=== PATIENT | female | born 1995 | race Caucasian/White ===

== ENCOUNTER 2021-03-11 01:47 | Day surgery (SDC) | payer OTHER, SELFPAY ==
[2021-02-25 14:45] VITALS: BMI 24.5
--- NOTE | 2021-03-11 08:25 | WPDANESEPPF ---
Anes - Initial Pre Proc Eval Procedure: Operation Date: 03/11/21 09:45 Proposed Procedures p Esophagogastroduodenoscopy & Colonoscopy - Jeffy Bhandari MD Date/Time: 03/11/21 08:25 Surgeon: Jeffy Bhandari MD Pre Op Diagnosis: blood in stool, nausea and vomiting Patient Data Age: 25 Gender: F Height: 1.6 m Weight: 63 kg Allergies Allergy/AdvReac Type Severity Reaction Status Date / Time pecan nut Allergy Severe Swelling Verified 03/11/21 09:26 of Lip/Tongue/Throat walnut Allergy Severe Swelling Verified 03/11/21 09:26 of Lip/Tongue/Throat montelukast Allergy Intermediate Rash Verified 03/11/21 09:26 Home Medications Medication Instructions Recorded Confirmed Type albuterol sulfate 90 mcg/actuation 1 puff INHALATION Q4H PRN 02/09/20 03/11/21 History aerosol inhaler cetirizine 10 mg tablet 10 mg PO DAILY 02/09/20 03/11/21 History diphenhydramine HCl 25 mg capsule 25 mg PO TID PRN 02/09/20 03/11/21 History efinaconazole 10 % topical 1 applic TOPICAL DAILY 02/09/20 03/11/21 History solution with applicator epinephrine 0.3 mg/0.3 mL 0.3 mg IM ONCE #2 each 02/09/20 03/11/21 Rx injection, auto-injector fluticasone propionate 50 1 spray NASAL DAILY 02/09/20 03/11/21 History mcg/actuation nasal spray,suspension Advanced Multi EA 1 tab-cap PO DAILY 02/25/21 03/11/21 History Daily Probiotic 1 tab-cap PO DAILY 02/25/21 03/11/21 History guar gum [Benefiber (guar gum)] 1 packet PO BID 02/25/21 03/11/21 History norgestimate-ethinyl estradiol 1 tablet PO DAILY 02/25/21 03/11/21 History [Tri-Sprintec (28)] Patient hx anesthesia problems: none Family hx anesthesia problems: none PMFSH Past Medical History Medical History (Updated 03/11/21 @ 08:25 by Elvis Humphrey MD) Asthma Asthma Blood in stool Chronic GERD Eczema Nausea and vomiting in adult Surgical History Surgical History [place] teeth extracted Family History Family History Father Hypertension Diabetes mellitus High cholesterol Grandparent Hypertension Diabetes mellitus Pancreatic cancer Cerebrovascular accident Glaucoma Social History Social History Smoking status: Never smoker Alcohol intake: current Alcohol use details: social Substance use: never Substance use type: does not use Living arrangements: with family Spiritual care concerns: No Anes - Eval Final PreProcedure Day of Procedure 03/11/21 08:25 Patient weight: normal Heart: regular rate and rhythm Lungs: clear to auscultation and normal air movement Airway: Mallampati scale class II Neurological: alert and oriented Last oral intake: >/= 8 hours ASA classification: II Emergent: no Anesthetic plan: proceed Anesthesia type and monitoring: general GIVS Informed Consent: The patient's anesthetic plan and its attendant risks and benefits were discussed with the patient/family/POA. Questions were solicited and answers provided to the satisfaction of the patient/family/POA.
[2021-03-11 09:28] VITALS: BP 138/76; PULSE 98; RESP 16; TEMP 36.4; O2SAT 100; BMI 24.9
[2021-03-11] MEDS: LACTATED RINGERS 1,000 ML 150 ML IV CONT (09:32)
--- NOTE | 2021-03-11 09:54 | PM.HPGS ---
History of Present Illness History of Present Illness Consent: Risks, benefits, and alternatives have been discussed and questions answered. Patient agrees to proceed with procedure. Chief complaint: blood in stool, nausea and vomiting Narrative: Nikki Hearn is a 25 year old female here for egd and colonoscopy, had intermittent moderate upper abdominal pain at least once a month associated most of times with nausea but improved since last office visit. Also noted blood in stools. Never had scopes. Review of Systems Constitutional: Constitutional: Denies headache(s) and Denies weakness Eyes: Eyes: Denies blurry vision ENT: Reports Normal hearing present, Denies headache(s) and Denies neck pain Cardiovascular: Cardiovascular: Denies chest pain and Denies dyspnea Respiratory: Respiratory: Denies dyspnea Gastrointestinal: Gastrointestinal: Reports no additional gastrointestinal complaints Genitourinary: Genitourinary: Denies dysuria Musculoskeletal: Musculoskeletal: Denies neck pain Integumentary/Breasts: Skin/Breast: Denies dry skin Neurologic: Reports Normal hearing present, Denies headache(s) and Denies weakness Psychiatric: Psychiatric: Denies anxiety Endocrine: Endocrine: Denies change in body appearance Hematologic/Lymphatic: Hematologic/Lymphatic: Denies easy bleeding Allergic/Immunologic: Allergic/Immunologic: Denies urticaria PMFSH Past Medical History Medical History (Updated 03/11/21 @ 09:55 by Jeffy Bhandari MD) Asthma Asthma Blood in stool Chronic GERD Eczema Nausea and vomiting in adult Upper abdominal pain Surgical History Surgical History [place] teeth extracted Family History Family History Father Hypertension Diabetes mellitus High cholesterol Grandparent Hypertension Diabetes mellitus Pancreatic cancer Cerebrovascular accident Glaucoma Social History Social History Smoking status: Never smoker Alcohol intake: current Alcohol use details: social Substance use: never Substance use type: does not use Living arrangements: with family Spiritual care concerns: No Meds Home Medications and Allergies Home Medications Medication Instructions Recorded Confirmed Type albuterol sulfate 90 mcg/actuation 1 puff INHALATION Q4H PRN 02/09/20 03/11/21 History aerosol inhaler cetirizine 10 mg tablet 10 mg PO DAILY 02/09/20 03/11/21 History diphenhydramine HCl 25 mg capsule 25 mg PO TID PRN 02/09/20 03/11/21 History efinaconazole 10 % topical 1 applic TOPICAL DAILY 02/09/20 03/11/21 History solution with applicator epinephrine 0.3 mg/0.3 mL 0.3 mg IM ONCE #2 each 02/09/20 03/11/21 Rx injection, auto-injector fluticasone propionate 50 1 spray NASAL DAILY 02/09/20 03/11/21 History mcg/actuation nasal spray,suspension Advanced Multi EA 1 tab-cap PO DAILY 02/25/21 03/11/21 History Daily Probiotic 1 tab-cap PO DAILY 02/25/21 03/11/21 History guar gum [Benefiber (guar gum)] 1 packet PO BID 02/25/21 03/11/21 History norgestimate-ethinyl estradiol 1 tablet PO DAILY 02/25/21 03/11/21 History [Tri-Sprintec (28)] Allergies Allergy/AdvReac Type Severity Reaction Status Date / Time pecan nut Allergy Severe Swelling Verified 03/11/21 09:26 of Lip/Tongue/Throat walnut Allergy Severe Swelling Verified 03/11/21 09:26 of Lip/Tongue/Throat montelukast Allergy Intermediate Rash Verified 03/11/21 09:26 Vital Signs Vital Signs - 24 hr 03/11/21 09:28 Temperature 97.6 F Pulse Rate 98 Respiratory Rate 16 Blood Pressure 138/76 Pulse Oximetry 100 Exam Const: General: comfortable and no acute distress HENMT: General nose exam: Normal nares present Eyes: General: appearance normal, both eyes and all related structures N
[2021-03-11] MEDS: BENZOCAINE (*SP) 60 ML SPRAY CAN (HURRICAINE) 1 SPRAY MUCOUS MEM (10:00)
[2021-03-11 10:25] VITALS: BP 88/47; PULSE 66; RESP 20; O2SAT 99
[2021-03-11 10:35] VITALS: BP 100/63; PULSE 69; RESP 17; O2SAT 100
[2021-03-11 10:45] VITALS: BP 108/72; PULSE 63; RESP 16; O2SAT 100
== END 2021-03-11 10:54 | disposition home or self-care (01) ==
PROVIDERS: PCP Family Medicine; Visit Provider Internal Medicine Gastroenterology
PROC: 0DJ08ZZ Inspection of Upper Intestinal Tract, Via Natural or Artificial Opening Endoscopic (ICD-10-PCS; CPT 43235; principal; 2021-03-11 09:45)
DX: R10.13 Epigastric pain (principal); R11.0 Nausea; R10.10 Upper abdominal pain, unspecified; K92.1 Melena; K64.8 Other hemorrhoids; K29.50 Unspecified chronic gastritis without bleeding; J45.909 Unspecified asthma, uncomplicated; L30.9 Dermatitis, unspecified; Z79.84 Long term (current) use of oral hypoglycemic drugs
CPT/HCPCS: 43239; 45378; 88305; J2704; J7120

== ENCOUNTER 2021-05-19 08:53 | Outpatient (CLI) | payer OTHER, SELFPAY ==
--- NOTE | ~2021-05-19 | US_ITS ---
EXAMINATION: US abdomen complete EXAM DATE: 05/19/2021 09:26 INDICATION: R10.10 - Upper abdominal pain, unspecified. TECHNIQUE: Multiple grayscale and Doppler images of the complete abdomen were obtained (by a technolo gist who performed the scan) and subsequently reviewed. There is no prior study for comparison. FINDINGS: The abdominal aorta is normal in caliber. Visualized portion IVC is patent. The pancreatic head a nd body are normal in appearance. The pancreatic tail is not visualized. The liver has normal echogenicity and contour. There are no focal liver lesions identified. There is no evidence of intrahepatic biliary duct dilation. Portal venous flow was seen in the hepatopedal , normal direction and has normal Doppler waveform. Common bile duct measures 2.5 mm, which is normal. The gallbladder wall is normal in thickness, with expected amount of distention. No sonographic evidence of pericholecystic fluid. There is no cholel ithiases. Technologist performing exam reports patient did not demonstrate sonographic Givens's sign. Please note that this sign is less reliable in patients who have received pain medication. Right kidney: There is normal contour and echogenicity. It measures 9.0 x 3.7 x 4.9 centimeters. T here are no focal renal lesions identified. There is no hydronephrosis. Left kidney: There is normal contour and echogenicity. It measures 8.8 x 4.4 x 4.6 centimeters. Th ere are no focal renal lesions identified. There is no hydronephrosis. The spleen measures 9.1 centimeters and is morphologically normal. IMPRESSION: 1. Unremarkable complete abdominal ultrasound exam. Reviewed, dictated and finalized at location A.
== END 2021-05-19 08:54 | disposition home or self-care (01) ==
LOC: ANHIMG 08:57
PROVIDERS: PCP Family Medicine; Visit Provider Internal Medicine Gastroenterology
DX: R10.10 Upper abdominal pain, unspecified (principal)
CPT/HCPCS: 76700

== ENCOUNTER → 2022-09-07 14:45 | Outpatient (CLI) | payer OTHER, SELFPAY ==
--- NOTE | ~2022-09-07 | US_ITS ---
EXAMINATION: US OB <= 14 weeks fetus DATE: 09/07/2022 15:06 INDICATION: History of spontaneous . TECHNIQUE: Real-time transabdominal pelvic ultrasound was performed. COMPARISON: None. FINDINGS: The uterus measures 9.7 x 5.0 x 7.5 cm. There is an intrauterine gestational sac. A yolk sac is ident ified. The crown rump length measures 2.0 cm, which correlates with an estimated gestational a ge of 8 weeks and 4 day(s) (+/-) 5 day(s). heart motion is identified measuring 181 beats per m inute (bpm) by M-mode Doppler. The right ovary measures 2.6 x 1.6 x 2.2 cm. The left ovary measures 3 .5 x 3.3 x 4.5 cm. There is a 3.3 cm cyst in left ovary with internal echoes, likely a hemorrhagic cy st. There is no free fluid in the pelvis. IMPRESSION: 1. Single living intrauterine gestation with estimated date of delivery of 04/15/2023. Reviewed, dictated and finalized at location A. D INSTRUCTOR IMPRESSION: 1. Single living intrauterine gestation with estimated date of delivery of 04/06.
== END ==
PROVIDERS: PCP Obstetrics & Gynecology Gynecology; Visit Provider Obstetrics & Gynecology Gynecology
DX: O09.291 Supervision of pregnancy with other poor reproductive or obstetric history, first trimester (principal)
CPT/HCPCS: 76801

== ENCOUNTER → 2022-11-30 14:35 | Outpatient (CLI) | payer OTHER, SELFPAY ==
--- NOTE | ~2022-11-30 | US_ITS ---
EXAMINATION: US OB /maternal detail DATE: 11/30/2022 15:05 INDICATION: Encounter for screening, unspecified. TECHNIQUE: Real-time ultrasound of the pelvis was performed. COMPARISON: Ultrasound 09/07/2022 FINDINGS: There is a single living fetus in breech presentation. The placenta is posterior, 5.4 cm from the ce rvix. The cervical length is 3.4 cm on transabdominal images, which is normal. heart rate is 15 2 beats per minute (bpm). The amniotic fluid volume is subjectively normal. The following biometric data were obtained: Biparietal diameter (BPD): 5.2 cm; head circumference (HC): 19.3 cm; abdominal circumference (AC): 16 .1 cm; femur length (FL): 3.4 cm. These measurements are concordant. Estimated weight is 399 g +/- 60 g, which correlates with the 74th percentile when 04/15/23 is u sed as estimated date of delivery. As single measurements, these parameters are each equal to the following estimated gestational ages: BPD: 21 weeks 6 days. HC: 21 weeks 4 days. AC: 21 weeks 1 days. FL: 20 weeks 6 days. estimated gestational age based solely on measurements from this exam is 21 weeks 3 days +/- 1 weeks 3 days. The cerebral ventricles, cerebellum, cisterna magna, nuchal fold, lip, and visualized portions of the spine are normal. The heart is normal. The diaphragm, stomach, kidneys, and bladder are normal. Ther e are two umbilical arteries to yield a 3-vessel cord. The cord insertion is normal. IMPRESSION: 1. Single living fetus in breech presentation. 2. Estimated weight is 399 g +/- 60 g, which correlates with the 74th percentile when 04/15/23 is used as estimated date of delivery. This date was set by ultrasound on 09/07/2022. 3. Normal anatomic survey. Reviewed, dictated and finalized at location E. IMPRESSION: 1. Single living fetus in breech presentation. 2. Estimated weight is 399 g +/- 60 g, which correlates with the 74th pe rcentile when 04/15/23 is used as estimated date of delivery. This date was set by ultrasound on 09/07/2022. 3. Normal anatomic survey.
== END ==
PROVIDERS: PCP Obstetrics & Gynecology Gynecology; Visit Provider Obstetrics & Gynecology Gynecology
DX: Z36.9 Encounter for antenatal screening, unspecified (principal)
CPT/HCPCS: 76805

== ENCOUNTER 2023-04-09 16:55 | Inpatient (IN) | payer OTHER, SELFPAY ==
[2023-04-09] VITALS (15 sets, daily range): BP systolic 106–130; BP diastolic 61–83; PULSE 75–87; TEMP 36.6; BMI 32.4
--- NOTE | 2023-04-09 16:55 | LDADM ---
This patient, Nikki Hearn, was admitted to Labor/Delivery/Recovery 108 on 04/09/23 at 16:55. Plans for labor, pain management and were discussed with patient. Patient/family oriented to hospital policies and general routines including ID bracelet, bed and alarms, visiting hours, pain management, procedures, bathroom and other care routines, personal items, smoking policy, room service/diet and guest tray routines, infant security routines, and visiting hours. Patient/Family are encouraged to report perceived risks to care and to ask questions if they do not understand what they are told or what they should do. See OBIX for further documentation.
[2023-04-09 18:00] LABS: Basophils Percent Auto 0.4 % (0.2-1.2); Eosinophils Absolute Auto 0.1 K/mm3 (0-0.3); Eosinophils Percent Auto 1.1 % (0-4.4); Hematocrit 33.1 % (37.0-47.0); Immature Granulocyte Absolute 0.09 K/mm3 (0.00-0.031); Immature Granulocyte Percent A 0.8 % (0-0.5); Lymphocytes Absolute Auto 1.89 K/mm3 (0.9-3.2); Lymphocytes Percent Auto 16.5 % (18.3-44.2); Mean Corpuscular HGB Conc 33.2 g/dl (32-36); Mean Corpuscular Volume 90.2 fl (80-100); Mean Platelet Volume 10.5 fl (7.4-10.4); Monocytes Absolute Auto 1.1 K/mm3 (0.1-0.6); Monocytes Percent Auto 9.5 % (2.6-8.5); Neutrophils Absolute Auto 8.2 K/mm3 (1.3-6.7); Neutrophils Percent Auto 71.7 % (45.5-73.1); Platelet Count Result 227 k/mm3 (150-375); Red Blood Count 3.67 M/mm3 (4.2-5.4); Red Cell Distribution Width 12.6 % (11.5-14.5); White Blood Count 11.4 K/mm3 (4.5-10.0)
[2023-04-09] MEDS: DINOPROSTONE 10 MG VAG INSERT VAGINAL (18:03)
[2023-04-09 18:51] LABS: HIV 1/2 Ab P24 Ag Result Negative (Negative)
[2023-04-10] VITALS (97 sets, daily range): BP systolic 88–141; BP diastolic 43–89; PULSE 64–167; TEMP 36.2–37.2; O2SAT 99–100
[2023-04-10] MEDS: AMPICILLIN 2 GM/NS 100 ML 2 GM/100 ML BAG IVPB (00:25)
[2023-04-10] MEDS: AMPICILLIN 1 GM/NS 50 ML 1 GM/50 ML BAG IVPB ×5 (04:14→22:35)
--- NOTE | 2023-04-10 05:18 | WPDANESEPP ---
Anes - Eval Pre Procedure Procedure: labor epidural Date/Time: 04/10/23 05:18 Surgeon: shasta Preop Diagnosis: pain during labor Pre Op Diagnosis: Induction of Labor Patient Data Age: 27 Gender: F Height: 1.6 m Weight: 83 kg Last Vital Signs Temp 36.9 C 04/10/23 04:15 Pulse 77 04/09/23 21:15 BP 106/61 04/09/23 21:15 O2 Del Method Room Air 04/09/23 17:45 Allergies Allergy/AdvReac Type Severity Reaction Status Date / Time pecan nut Allergy Severe Swelling Verified 03/23/23 14:17 of Lip/Tongue/Throat walnut Allergy Severe Swelling Verified 03/23/23 14:17 of Lip/Tongue/Throat montelukast Allergy Intermediate Rash Verified 03/23/23 14:17 Home Medications Medication Instructions Recorded Confirmed Type albuterol sulfate 90 mcg/actuation 1 puff inhalation Q4H PRN 02/09/20 03/23/23 History aerosol inhaler Shortness Of Breath Or Wheezing cetirizine 10 mg tablet (Zyrtec) 10 mg PO DAILY 02/09/20 04/09/23 History epinephrine 0.3 mg/0.3 mL 0.3 mg (0.3 mL) IM ONCE #2 ea 02/09/20 03/23/23 Rx injection, auto-injector (EpiPen 2-Uriah) Daily Probiotic 1 tab-cap PO DAILY 02/25/21 03/23/23 History guar gum 1 packet PO BID 02/25/21 03/23/23 History cholecalciferol (vitamin D3) 125 5,000 mcg PO DAILY 03/23/23 03/23/23 History mcg (5,000 unit) tablet (Vitamin D3) Laboratory Tests 04/09/23 17:42 WBC 11.4 H K/mm3 (4.5-10.0) RBC 3.67 L M/mm3 (4.2-5.4) Hgb 11.0 L g/dL (12.0-15.0) Hct 33.1 L % (37.0-47.0) MCV 90.2 fl (80-100) MCH 30.0 pg (26-34) MCHC 33.2 g/dl (32-36) RDW 12.6 % (11.5-14.5) Plt Count 227 k/mm3 (150-375) MPV 10.5 H fl (7.4-10.4) Immature Gran % (Auto) 0.8 H % (0-0.5) Neut % (Auto) 71.7 % (45.5-73.1) Lymph % (Auto) 16.5 L % (18.3-44.2) Dane % (Auto) 9.5 H % (2.6-8.5) Eos % (Auto) 1.1 % (0-4.4) Baso % (Auto) 0.4 % (0.2-1.2) Lymph # (Auto) 1.89 K/mm3 (0.9-3.2) Dane # (Auto) 1.1 H K/mm3 (0.1-0.6) Eos # (Auto) 0.1 K/mm3 (0-0.3) Baso # (Auto) 0.0 K/mm3 (0.0-0.1) Abs Immat Gran (auto) 0.09 H K/mm3 (0.00-0.031) Absolute Neuts (auto) 8.2 H K/mm3 (1.3-6.7) Absolute Nucleated RBC 0.0 K/mm3 (0.0-0.012) Nucleated RBC % 0.0 % (0.0-0.2) RPR Pending HIV 1&2 Ab/P24 Ag 4thGn Negative (Negative) Blood Type A Positive Antibody Screen Negative Patient hx anesthesia problems: none Family hx anesthesia problems: none Results Review: All pre-operative results and documents have been reviewed as part of the pre-operative evaluation. [facility] Past Medical History Medical History Asthma Asthma Blood in stool Chronic GERD Eczema Nausea and vomiting in adult Upper abdominal pain Surgical History Surgical History [place] teeth extracted Family History Family History (Updated 03/23/23 @ 14:35 by Tracey Feldman RN) Father Diabetes mellitus High cholesterol Hypertension Grandparent Pancreatic cancer Diabetes mellitus Glaucoma Hypertension Cerebrovascular accident Mother High cholesterol Social History Social History Smoking status: Never smoker Alcohol intake: current Alcohol use details: social Substance use: never Substance use type: does not use Lack of Transportation: No Lack of Food: Never True Current Housing: I Have Housing Concerned About Future Housing: No Difficulty Paying Gas/Electric Bills: No Difficulty Paying for Meds: No Currently Unemployed: No Education: Master's Degree or Higher Difficulty w/ Childcare or Family Care: No Living arrangements: with family Spiritual care concerns: No Exam Day of Procedure 04/10/23 05:18
[2023-04-10] MEDS: OXYTOCIN 30 UNITS/NS 500 ML 30 UNITS/500 ML BAG 6 UNITS IV CONT (07:01)
[2023-04-10] MEDS: ONDANSETRON INJ 4 MG/2 ML VIAL IV PUSH ×2 (07:01→18:51)
--- NOTE | 2023-04-10 07:28 | WPDOBADMIT ---
Obstetrics - Admit Note Admission Note: record reviewed. No pertinent additions to the history and/or any subsequent changes in the physical findings that are not consistent with the expected course of the were found. Additions to the history and/or subsequent changes in the physical findings follow. Here for MIL at 39 wks. Cervix 2-3/70/-2 posterior. AROM with clear fluid. Pitocin per protocol. FHTs cat.I.
[2023-04-10] MEDS: fentaNYL CITRATE INJ (*CRX) 100 MCG/2 ML VIAL 50 MCG IV PUSH (08:09)
[2023-04-10] MEDS: LACTATED RINGERS 1,000 ML 125 ML IV CONT ×2 (09:10→18:37)
[2023-04-10 15:36] LABS: Rapid Plasma Reagin Non-Reactive (NonReactive)
[2023-04-11] VITALS (18 sets, daily range): BP systolic 112–139; BP diastolic 57–104; PULSE 71–103; RESP 16–18; TEMP 36.6–37.4; O2SAT 98–99
--- NOTE | 2023-04-11 02:05 | PM.OBPRVD ---
OB - Delivery Note Procedure Delivery date: 04/11/23 Procedure: Induction method: AROM, Per Pitocin Protocol and Per Cervidil Protocol Delivery monitor: External FHT and External Uterine Route of delivery: Laceration Description: Perineal - 2nd Degree Delivery repair: vicryl (3-0) Specimen: Yes (placenta) Quantitative Blood Loss (ml): 150 Anesthesia type: Epidural Disposition: Floor Baby Date of : 04/11/23 Weeks of gestation at delivery: 39 Infant gender: Male presentation: vertex position: Right Occiput Anterior Placenta delivery description: Spontaneous Cord Vessel Description: 3 Vessels, Nuchal Cord and Delayed Cord Clamping score one minute: 8 score five minutes: 9
--- NOTE | 2023-04-11 02:07 | PM.OBDSVD ---
DS: Admitting Diagnosis Discharge Date 04/13/23 Admitting Diagnosis MIL @ 39 3/7 wks DS: Discharge Diagnosis Discharge Diagnosis (1) (normal spontaneous vaginal delivery): Code(s): O80 - Encounter for full-term uncomplicated delivery Status: Acute OB - DS: Summary OB Procedures : Ultrasound OB Procedures Intrapartum: Spontaneous Vag Delivery OB Procedures: : None Peripartum Data Delivery Method: Natural Vaginal Laceration Description: Perineal - 2nd Degree complications: none Status at Discharge Functional status at discharge: independent ambulation Overall status at discharge: patient is progressing back to baseline Time Spent with Patient Time attestation: Total time spent providing and/or coordinating discharge services: DS: Data Data Completed and Pending Labs on day of discharge: Labs from last 24 hours 04/09/23 17:42 RPR Non-reactive Discharge Plan Discharge Attending physician on discharge: Tamia Gonzalez Consulting providers: Phillip Brennan; Edilma Gonsalez; Gilberto Sandoval; Stella Pritchett Discharging Clinician: Stella Pritchett Anticipated Discharge Date/Time: 04/13/23 02:08 Patient Disposition: Home, Self-Care Activity: may shower and pelvic rest Diet: regular Wound Care Instructions: follow printed instructions Discharge Instructions: Education: Mom and Baby Guide Given to: Mother Follow-Up: Call your delivering provider's office for an appointment to be seen in: 4 Weeks Mom and baby [facility] for the follow-up appointment. Appointment Date/Time: April 14, 2023 at 11:00 am What to expect at your follow-up visit: Blood Pressure Check Call [phone] if you are unable to keep your appointment time. BREAST CARE: * Wear a snug supportive bra. * For engorgement discomfort: Breast Feeding: * Apply warm moist washcloths * Express milk as needed to relieve engorgement * Wear loose clothing Bottle Feeding: * May apply ice packs * For sore nipples: * Identify correct latch-on * Apply warm moist washcloths before and after nursing * Air dry nipples after nursing * May apply Lansinoh cream to nipples PERINEAL CARE: * Until bleeding stops, use your cristaino bottle after urinating * Change your pad frequently throughout the day * You may take sitz baths several times a day (fill your bathtub with warm water and soak for 20 minutes.) Do NOT bathe in the water * No tub baths until seen by your physician - You may shower ACTIVITY: * Rest as much as possible. * Do not exercise or lift anything heavier than your baby (such as laundry or other children.) * Avoid stairs or driving as much as possible. * Do not put anything into the vagina. No douching, tampons, or sexual activity until seen by physician. NOTIFY PHYSICIAN IF YOU HAVE ANY QUESTIONS OR IF ANY OF THE FOLLOWING SYMPTOMS OCCUR: * If your perineum becomes red, swollen, or more painful than what you have experienced in the hospital. * If your vaginal bleeding becomes foul smelling. * If your vaginal bleeding becomes more heavy than a period or if your bleeding changes from pink to bright red. However, you may pass an occasional walnut-sized clot once or twice for the first week . * If you experience a sharp, shooting pain in you calves. * If you discover a hard, reddened area on your breast or if you experience flu-like symptoms. * If you have a fever of 100.4 or greater DIET: * Eat regular, well-balanced meals. * Drink plenty of fluids daily. If , drink to thirst.Continue taking your vitamin and any other supplements as previously directed (Examples: Iron, Vitamin D). You may take Tylenol 1000mg over the counter every 6 hours as needed for pain. Do not exceed 4000mg of Tylenol d
[2023-04-11] MEDS: OXYTOCIN 30 UNITS/NS 500 ML 30 UNITS/500 ML BAG 125 UNITS IV CONT (02:10)
[2023-04-11] MEDS: IBUPROFEN 600 MG TABLET PO ×4 (02:57→16:59)
--- NOTE | 2023-04-11 04:51 | OBPPTRN ---
Patient transferred to post room #281 via w/c. Support person present. Oriented to unit, room, information board, rooming in, admission packet and security measures. Patient verbalizes understanding.
--- NOTE | 2023-04-11 09:04 | PC.NURSE ---
On 04/11/23, the student, Todd Mai, provided care and completed [facility] documentation on this patient. I have reviewed the student's documentation and agree with the findings.
[2023-04-11] MEDS: MULTIVIT/MIN/PREN/FOL AC/IRON TABLET 1 TAB PO (09:48)
[2023-04-11] MEDS: DOCUSATE SODIUM 100 MG CAPSULE PO ×2 (09:48→16:59)
--- NOTE | 2023-04-11 10:42 | PM.OBPNVD ---
OB - PN: Subj Subjective Date/time seen: 04/11/23 0743 Interval history: PPD 0 from . Taking Ibuprofen for vaginal soreness. Has put baby to breast twice. No large clots. Urinated without problems. Patient comments: pain well controlled feeding status: exclusively breast feeding OB - PN: Obj Data Labs 04/09/23 17:42 Labs: Laboratory Results - last 24 hr 04/09/23 17:42 RPR Non-reactive OB - PN A/P Plan day: 0 Plan: routine care Time Spent With Patient Time: Total time spent is greater than 50% in coordination of care (as documented) at patient's floor/unit and/or counseling patient: Review of Systems Review of Systems: All systems reviewed & are unremarkable except as noted in HPI and below Exam Narrative: Alert and oriented. Mood is pleasant and cooperative. Perineum with minimal edema. Fundus firm and below umbilicus. Const: General: cooperative, healthy appearing, no acute distress and alert Orientation/consciousness: patient oriented x3 Limitations: no limitations Resp: Effort & Inspection: normal respiratory effort and able to speak in complete sentences Auscultation: clear to auscultation bilaterally Cardio: Rate: regular rate GI: Inspection: normal to inspection Auscultation: normal bowel sounds : Speculum Exam - Vagina: vaginal bleeding OB/external & speculum: vaginal bleeding Skin: General skin exam: normal color and no rashes or lesions noted Neuro: General: patient oriented x3 and moves all extremities Cognition (Neuro): normal cognition Extrem: General: normal to inspection and no calf tenderness Psych: Appearance: grossly normal Mental Status: mental status grossly normal Affect: normal affect Thought process: Normal thought process present
--- NOTE | 2023-04-11 12:28 | PC.NURSE ---
[phone] Introductions were made, then consulted with patient to assess needs related to . Mother led the conversation with her?plans to feed?her infant and the?experience so far. Resources provided for inpatient services with name written on the white board. Mother voiced understanding of information and will call if there is a request for assistance. [phone] Consulted with patient to assess needs related to . Mother led the conversation with her?plans to feed?her and the?experience so far. Mother works well with her with encouragement and education. Encouraged understanding of the benefits of skin to skin (demonstrating unwrapping infant and placing upright on her chest), stimulating with massage touch, changing positions to encourage wakefulness, how to watch for early feeding cues, responsive feeding, feeding on demand (aiming for 8-12 times in 24 hours, about every 2-3 hours), milk production, building/maintaining a milk supply, duration of feeding, signs of adequate intake/output and how to record on the feeding sheet. Reviewed positioning and ear, shoulder, hip alignment, supporting the breast to facilitate a deep latch, asymmetrical latch (off-center), leading with the chin with a big, open, wide gape and body close to mother. Nipple shield provided prior to introduction to mother due to ineffective by not latching. Reviewed good handwashing, cleaning the nipple shield and application. Discussed with mom the nipple shield precautions, possible complications associated with the risks and benefits. Reviewed practicing with a nipple shield, then without and how to protect the milk supply and production. Mom voiced understanding of the importance of hand expression, nipple stimulation and initiating a pumping schedule if continues to nurse with the shield. Nipple care reviewed with optimal latch and good positioning. Reviewed good handwashing when or touching the breast/nipples to prevent infection. We practiced with and without the nipple shield. Infant attempts with a big, open, wide gape without sucking on the breast. With the nipple shield applied correctly sucked a few times, then stops. is sleepy and reluctant to practice eating at this time. Resources used to facilitate learning were used with the mom and baby guide. Mother voiced understanding of skin to skin, stimulating with massage touch, responsive feedings, hand expressed colostrum, talking to to encourage if it has been 2 -2.5 hours since the start of the last , to call if infant does not latch, or if there is discomfort with . Parents voiced understanding of information, demonstrated learning and will call if there is a request for assistance. Reported to the Primary RN.
--- NOTE | 2023-04-11 15:20 | PC.NURSE ---
1330 - Purposefully rounded to assess needs. Parents state they attempted to breastfeed 10 min on each breast with and without the nipple shield. They are sitting down to eat lunch. Reviewed protecting the milk supply and instructed them to call Primary RN Irene to initiate pumping when they are finished with lunch. Father of baby showed RN a picture of colostrum inside the nipple shield after using the tool. Reported to Primary RN.
--- NOTE | 2023-04-11 16:15 | PC.NURSE ---
1522 - 1645 Consulted with patient to assess needs related to . Reviewed stimulating for wakefulness to breastfeed. Assisted mother with practicing her infant with and without the nipple shield on the right breast using football positioning. After several attempts of practicing the nipple shield walolng the infant was able to latch a suck a few times with good rocking motion. Infant doesn't maintain for long and demonstrates the gagging reflux afterwards. Parents were encouraged to use [id number] and to keep practicing every 2-3 hours. We discussed hand, manual and electric expression to protect her milk supply. Mother opted to use the electric pump at this time. 1655 - 1610 Breast pump provided due to ineffective feeding with a nipple shield. Instructions given on cleaning, care, usage, that there should be no pain, pumping schedule for milk production, collection, and storage of human milk. Parents are encouraged to record pumping schedule on the [feeding sheet/pumping log]. Patient was assessed for correct placement, flange size, to pump for comfort and nipple stretching/stimulation for adequate milk production every 3 hours (8 times in 24 hours) 1-2 times at night. Mother voiced understanding of the education shared along with mom and baby guide for additional resource information. Reported to the primary RN.
[2023-04-12] MEDS: IBUPROFEN 600 MG TABLET PO ×2 (03:38→17:12)
[2023-04-12 04:25] VITALS: BP 130/74; PULSE 90; RESP 18; TEMP 36.7; O2SAT 98
[2023-04-12 05:10] LABS: Hematocrit 26.7 % (37.0-47.0); Hemoglobin 8.7 g/dL (12.0-15.0)
--- NOTE | 2023-04-12 07:00 | PC.NURSE ---
PT introductions made and plan of care discussed per post , pain management, breast feeding, pumping, daily care activities and nausea. PT and fob both recipients of such instructions and no barriers to learning identified at this time. PT received such instructions per one to one discussion, mom baby care guide and demonstrations this shift. PT verbalized understanding of such care.
[2023-04-12 07:30] VITALS: BP 107/63; PULSE 78; RESP 18; TEMP 36.8; O2SAT 98
[2023-04-12] MEDS: POLYSACCHARIDE IRON COMPLEX 150 MG CAPSULE PO ×2 (08:00→17:13)
[2023-04-12] MEDS: ONDANSETRON HCL ODT 4 MG TABLET (09:01)
--- NOTE | 2023-04-12 09:45 | PC.NURSE ---
Ese CARPENTERMW here to examine pt. US done of abdomen and digital vaginal exam. Consulting with Dr Brennan and plan of care. IV to be restarted and fluids. I/O and measure sanitary pads. May eat. Start Antibiotics and IV iron. PT stating feeling better since Zofran po.
--- NOTE | 2023-04-12 10:04 | PM.OBPNVD ---
OB - PN: Subj Subjective Date/time seen: 04/12/23 0855 Interval history: PPD 1 from with 2nd degree perineal laceration. Reports nausea. She reports dizziness when sitting upright and with standing/ambulation. Patient comments: other (vaginal discomfort and pressure, back soreness) baby status: doing well [place] feeding status: exclusively breast feeding OB - PN: Obj Data Labs 04/12/23 04:37 Labs: Laboratory Results - last 24 hr 04/12/23 04:37 Hgb 8.7 L Hct 26.7 L OB - PN A/P Plan day: 1 Plan: routine care Comments: Spoke with Dr. Brennan on telephone. Discussed pt's condition, vital signs, lab values and CNM findings on exam. Plan IV hydration and IV iron as well as one dose Ancef d/t fundal tenderness. After digital exam, requested 2nd opinion from MD. Discussed plan of care with Nikki and her family. All questions answered. Time Spent With Patient Time: Total time spent is greater than 50% in coordination of care (as documented) at patient's floor/unit and/or counseling patient: Time with patient: Greater than 35 minutes Review of Systems Review of Systems: All systems reviewed & are unremarkable except as noted in HPI and below Constitutional: Constitutional: Reports no additional constitutional complaints Genitourinary: Comments: Urinating without difficulty. Exam Const: General: cooperative, no acute distress and alert Orientation/consciousness: patient oriented x3 Limitations: no limitations Resp: Effort & Inspection: normal respiratory effort and able to speak in complete sentences Auscultation: clear to auscultation bilaterally Cardio: Rate: regular rate GI: Inspection: normal to inspection Auscultation: normal bowel sounds : External Female Exam: normal external appearance and external swelling (minimal, laceration well approximated) OB/external & speculum: vaginal bleeding (WNL) Other: Fundus initally palpated 2 above U and deviated to the right. Pt assisted to bathroom by her mother and RN and voided a large amount. Fundus then palpated firm at U but tender. Limited bedside ultrasound perfomed. In some views, a uterine stripe was visualized but possible clot noted at the fundus. Vaginal exam with one digit performed. A moderately firm, smooth, round mass was palpated in the posterior vagina. Back/Spine/Pelvis: Other: No bruising, swelling, redness. Skin: General skin exam: no rashes or lesions noted and pallor Neuro: General: patient oriented x3 and moves all extremities Cognition (Neuro): normal cognition Extrem: General: normal to inspection and no calf tenderness Psych: Appearance: grossly normal Mental Status: mental status grossly normal Affect: normal affect Thought process: Normal thought process present
[2023-04-12] MEDS: ACETAMINOPHEN 325 MG TABLET 650 MG PO ×2 (10:45→17:11)
[2023-04-12] MEDS: MULTIVIT/MIN/PREN/FOL AC/IRON TABLET 1 TAB PO (10:47)
[2023-04-12] MEDS: DOCUSATE SODIUM 100 MG CAPSULE PO ×2 (10:47→17:12)
--- NOTE | 2023-04-12 10:47 | PC.NURSE ---
[id number] Introductions were made, then consulted with patient to assess needs related to . Mother led the conversation with her?plans to feed?her infant, history with low milk supply and the?experience so far is a bit pinchy . Mother works well with her with encouragement and education. Encouraged understanding of the benefits of skin to skin (demonstrating unwrapping infant and placing upright on her chest), stimulating with massage touch, changing positions to encourage wakefulness, how to watch for early feeding cues, responsive feeding, feeding on demand (aiming for 8-12 times in 24 hours, about every 2-3 hours), milk production, building/maintaining a milk supply, duration of feeding, signs of adequate intake/output and how to record on the feeding sheet. Reviewed positioning and ear, shoulder, hip alignment, supporting the breast to facilitate a deep latch, asymmetrical latch (off-center), leading with the chin with a big, open, wide gape and body close to mother. latched optimally to the left breast in football position. Infant is visualized to have a rare swallow and pulls back after a while to latch differently. Nipple is flattened on the underside of the nipple when infant is detached. This practice of latching deeply was practiced, parents were taught how to visualize the swallows and the difference between non-nutritive sucking. Education given to mother of how to visualize suck/swallow ratios and listen for drinking at the breast. Infant was able to maintain latch without discomfort to mother and at times a pinchy discomfort. Nipple care reviewed with optimal latch and good positioning. Mother was encouraged to continue to practice taking off the breast and re-latching for a deeper latch when infant is not swallowing or repositions and causes her pain. Infant was latched to the left breast using football positioning and we noticed the same on this side as we did the right side. Reviewed consistency for milk production and the risks of low milk supply based on her history and wide space between her breast. Recommended to switch up positioning as relearns a deeper latch. Reviewed good handwashing when or touching the breast/nipples to prevent infection. Resources used to facilitate learning were used with the mom and baby guide. Mother voiced understanding of skin to skin, stimulating with massage touch, responsive feedings, hand expressed colostrum, talking to to encourage if it has been 2 -2.5 hours since the start of the last , to call if does not latch, or if there is discomfort with . Resources provided for inpatient/outpatient with feeding sheet, name written on the communication board and the mom/baby guide. Parents voiced understanding of information, demonstrated learning and will call if there is a request for assistance. Reported to the Primary RN.
[2023-04-12] MEDS: SODIUM CHLORIDE 0.9% IV 1,000 ML 500 ML IV CONT (10:48)
[2023-04-12] MEDS: KETOROLAC 30 MG/ML VIAL (*BKC) (10:49)
--- NOTE | 2023-04-12 10:58 | PC.NURSE ---
[id number] Purposefully rounded to assess patients needs with . Patient is not feeling well today, lips are pale and she is fighting nausea. was brought back to her and she was encouraged to call for assistance if she is willing and able. Reported to the Primary RN.
[2023-04-12] MEDS: ceFAZolin 2 GM/D5W 50 ML 2 GM/50 ML BAG IVPB (11:53)
[2023-04-12 12:34] VITALS: BP 110/56; PULSE 76; RESP 16; TEMP 37.1; O2SAT 99
--- NOTE | 2023-04-12 13:14 | WPDANLDPN2 ---
Anes-Prog Note L&D Date/Time: 04/12/23 13:14 Comfortable throughout: labor and delivery (patient reports that cartriage ran out, but was restarted. pain relief during delivery was not as good as during labor. ) Neuraxial method: epidural Epidural/Spinal procedure site: clean & non-tender Neuro status: Neuro function grossly intact. Cardiovascular status: normal Respiratory status: normal Airway patency: baseline Mental status: baseline Post-Op hydration status: normal Vital Signs: Last Vital Signs Temp 37.1 C 04/12/23 12:34 Pulse 76 04/12/23 12:34 Resp 16 04/12/23 12:34 BP 110/56 L 04/12/23 12:34 Pulse Ox 99 04/12/23 12:34 O2 Del Method Room Air 04/11/23 09:48 Pain score (VAS): 3/10 I/O: Intake & Output 04/11/23 04/12/23 04/12/23 23:59 07:59 15:59 Intake Total 50 Output Total 734 Balance -684 Post-procedural complaints: none Patient feedback: Patient satisfied with anesthetic care.
[2023-04-12] MEDS: WITCH HAZEL 40 PADS 1 PAD TOPICAL (13:43)
[2023-04-12] MEDS: ONDANSETRON INJ 4 MG/2 ML VIAL IV PUSH (13:44)
--- NOTE | 2023-04-12 17:45 | PC.NURSE ---
PT states feeling much better. Ambulating independently in room without dizziness or fatigue. PT states nausea has subsided and tolerating regular diet well. PT requests shower after dinner. PT states lochia light and no clots of heaviness noted.
[2023-04-12] MEDS: ONDANSETRON HCL ODT 4 MG TABLET PO (19:48)
[2023-04-12 20:35] VITALS: BP 129/78; PULSE 75; RESP 18; TEMP 36.9; O2SAT 100
[2023-04-12 21:16] LABS: Basophils Absolute Auto 0.1 K/mm3 (0.0-0.1); Basophils Percent Auto 0.3 % (0.2-1.2); Eosinophils Absolute Auto 0.2 K/mm3 (0-0.3); Hematocrit 25.8 % (37.0-47.0); Hemoglobin 8.4 g/dL (12.0-15.0); Immature Granulocyte Absolute 0.13 K/mm3 (0.00-0.031); Immature Granulocyte Percent A 0.8 % (0-0.5); Lymphocytes Absolute Auto 1.82 K/mm3 (0.9-3.2); Lymphocytes Percent Auto 11.2 % (18.3-44.2); Mean Corpuscular HGB Conc 32.6 g/dl (32-36); Mean Corpuscular Hemoglobin 30.1 pg (26-34); Mean Corpuscular Volume 92.5 fl (80-100); Mean Platelet Volume 10.9 fl (7.4-10.4); Monocytes Absolute Auto 1.1 K/mm3 (0.1-0.6); Monocytes Percent Auto 6.6 % (2.6-8.5); Neutrophils Percent Auto 80.1 % (45.5-73.1); Platelet Count Result 190 k/mm3 (150-375); Red Blood Count 2.79 M/mm3 (4.2-5.4); Red Cell Distribution Width 12.9 % (11.5-14.5); White Blood Count 16.2 K/mm3 (4.5-10.0)
[2023-04-13] MEDS: IBUPROFEN 600 MG TABLET PO ×3 (00:45→17:47)
[2023-04-13] MEDS: ACETAMINOPHEN 325 MG TABLET 650 MG PO ×3 (00:45→17:48)
[2023-04-13 01:45] VITALS: TEMP 37.1
[2023-04-13] MEDS: ONDANSETRON HCL ODT 4 MG TABLET PO (06:25)
[2023-04-13 07:25] VITALS: BP 122/72; PULSE 82; RESP 16; TEMP 36.8; O2SAT 99
--- NOTE | 2023-04-13 07:25 | PM.OBPNLAB ---
Pain Control Date/time seen: 04/12/23 1200 Patient states she feels better. Gentle bimanual exam performed, no adnexal parametrial swelling palpated. Lochia minimal.
--- NOTE | 2023-04-13 07:55 | PM.OBPNVD ---
OB - PN: Subj Subjective Date/time seen: 04/13/23 07:30 Interval history: PPD 2 from with 2nd degree perineal laceration. Reports slight nausea but improved from yesterday. Pain also greatly improved from yesterday. Denies passing large clots or filling cristiano pads. Denies dizziness with ambulation. Infant latching better. Patient comments: no complaints and pain well controlled [place] baby status: doing well and nursing well feeding status: exclusively breast feeding OB - PN: Obj Data Labs 04/12/23 20:45 Labs: Laboratory Results - last 24 hr 04/12/23 20:45 WBC 16.2 H RBC 2.79 L Hgb 8.4 L Hct 25.8 L MCV 92.5 MCH 30.1 MCHC 32.6 RDW 12.9 Plt Count 190 MPV 10.9 H Immature Gran % (Auto) 0.8 H Neut % (Auto) 80.1 H Lymph % (Auto) 11.2 L [place] % (Auto) 6.6 Eos % (Auto) 1.0 Baso % (Auto) 0.3 Lymph # (Auto) 1.82 [place] # (Auto) 1.1 H Eos # (Auto) 0.2 Baso # (Auto) 0.1 Abs Immat Gran (auto) 0.13 H Absolute Neuts (auto) 13.0 H Absolute Nucleated RBC 0.0 Nucleated RBC % 0.0 OB - PN A/P Plan day: 2 Plan: discharge home Comments: plan one additional dose of IV iron today prior to discharge. Time Spent With Patient Time: Total time spent is greater than 50% in coordination of care (as documented) at patient's floor/unit and/or counseling patient: Review of Systems Review of Systems: All systems reviewed & are unremarkable except as noted in HPI and below Constitutional: Constitutional: Reports no additional constitutional complaints Genitourinary: Comments: Urinating without difficulty. Exam Narrative: Alert and oriented. Mood is pleasant and cooperative. Perineum with minimal edema. Fundus firm and below umbilicus. Const: General: cooperative, healthy appearing, no acute distress and alert Orientation/consciousness: patient oriented x3 Limitations: no limitations Resp: Effort & Inspection: normal respiratory effort and able to speak in complete sentences Auscultation: clear to auscultation bilaterally Cardio: Rate: regular rate GI: Inspection: normal to inspection Auscultation: normal bowel sounds : OB/external & speculum: vaginal bleeding (small) Skin: General skin exam: normal color and no rashes or lesions noted Neuro: General: patient oriented x3 and moves all extremities Cognition (Neuro): normal cognition Extrem: General: normal to inspection and no calf tenderness Psych: Appearance: grossly normal Mental Status: mental status grossly normal Affect: normal affect Thought process: Normal thought process present
--- NOTE | 2023-04-13 08:47 | P.PNAN_ITS ---
Anes - Prog Note Post-Op Date/Time: 04/13/23 08:47 Cardiovascular status: normal Respiratory status: normal Airway patency: baseline Mental status: baseline Post-Op hydration status: normal Vital Signs: Last Vital Signs Temp 37.1 C 04/13/23 01:45 Pulse 75 04/12/23 20:35 Resp 18 04/12/23 20:35 BP 129/78 04/12/23 20:35 Pulse Ox 100 04/12/23 20:35 O2 Del Method Room Air 04/11/23 09:48 Pain Score (VAS): 2/10 I/O: Intake & Output 04/12/23 04/13/23 04/13/23 23:59 07:59 15:59 Intake Total 1475 Output Total 500 2400 Balance -500 -925 Laboratory Tests 04/12/23 20:45 04/12/23 20:45 WBC 16.2 H RBC 2.79 L Hgb 8.4 L Hct 25.8 L MCV 92.5 MCH 30.1 MCHC 32.6 RDW 12.9 Plt Count 190 MPV 10.9 H Immature Gran % (Auto) 0.8 H Neut % (Auto) 80.1 H Lymph % (Auto) 11.2 L [place] % (Auto) 6.6 Eos % (Auto) 1.0 Baso % (Auto) 0.3 Lymph # (Auto) 1.82 [place] # (Auto) 1.1 H Eos # (Auto) 0.2 Baso # (Auto) 0.1 Abs Immat Gran (auto) 0.13 H Absolute Neuts (auto) 13.0 H Absolute Nucleated RBC 0.0 Nucleated RBC % 0.0 Post-procedural complaints: none Patient Feedback: Patient satisfied with anesthetic care.
[2023-04-13 10:30] VITALS: PULSE 82; RESP 16; O2SAT 99
--- NOTE | 2023-04-13 10:30 | PC.NURSE ---
PT introductions made and plan of care discussed per post , pain management, breast feeding, pumping, daily care activities and pending discharge to home. PT and fob both recipients of such instructions and no barriers to learning identified at this time. PT received such instructions per one to one discussion, mom baby care guide and demonstrations this shift. PT verbalized understanding of such care.
[2023-04-13] MEDS: DOCUSATE SODIUM 100 MG CAPSULE PO ×2 (10:41→17:47)
[2023-04-13] MEDS: MULTIVIT/MIN/PREN/FOL AC/IRON TABLET 1 TAB PO (10:41)
[2023-04-13] MEDS: POLYSACCHARIDE IRON COMPLEX 150 MG CAPSULE PO ×2 (10:42→17:48)
[2023-04-13 11:10] LABS: Basophils Percent Auto 0.2 % (0.2-1.2); Eosinophils Absolute Auto 0.1 K/mm3 (0-0.3); Hematocrit 27.7 % (37.0-47.0); Hemoglobin 8.8 g/dL (12.0-15.0); Immature Granulocyte Absolute 0.27 K/mm3 (0.00-0.031); Mean Corpuscular HGB Conc 31.8 g/dl (32-36); Mean Corpuscular Hemoglobin 29.4 pg (26-34); Mean Corpuscular Volume 92.6 fl (80-100); Mean Platelet Volume 10.6 fl (7.4-10.4); Monocytes Absolute Auto 0.7 K/mm3 (0.1-0.6); Monocytes Percent Auto 5.1 % (2.6-8.5); Neutrophils Absolute Auto 10.9 K/mm3 (1.3-6.7); Neutrophils Percent Auto 78.7 % (45.5-73.1); Platelet Count Result 200 k/mm3 (150-375); Red Blood Count 2.99 M/mm3 (4.2-5.4); White Blood Count 13.8 K/mm3 (4.5-10.0)
--- NOTE | 2023-04-13 11:36 | PC.NURSE ---
[id number] Purposefully rounded to assess needs. Mother is feeling better today and up for eating. Mother states she has been able to latch her independently to her breast without the nipple shield at time. She uses the tool when needed, pumps her breast when infant uses the shield or receives the bottle. Parents have been supplementing with formula. Reinforced understanding of milk production, transition of milk, signs of adequate intake, transition of stool, prevention/relief of engorgement, plugged ducts, mastitis, responsive watching for feeding cues, the different methods of stimulating to breastfeed 2-3 hours after the start of the last feeding, community resources, medication information reviewed per [employer] and when to call a provider using the resource of the mom and baby guide. Mother voiced understanding of the education shared. Primary RN present for part of the consult.
[2023-04-14 11:25] VITALS: BP 130/86; PULSE 86; RESP 18; TEMP 37; O2SAT 100
--- OUTSIDE RECORDS SUMMARY | 2023-05-08 11:59 | XMS_ITS | Patient Health Record ---
Author Name Unknown Organization [facility] Address [address] [place] [address] Care Team Providers Care Medical Accounting Clerk Name Role Phone Stella Teresa Primary Care Provider Otto Luna Unavailable [phone] ALLERGIES Allergen (clinical drug ingredient) Drug/Non Drug Allergy documented on EMR Reaction Allergy Type Onset Date Status montelukast montelukast rash Drug Allergy Act dominic REASON FOR REFERRAL No Information MEDICATIONS Medication SIG (Take, Route, Frequency, Duration) Notes Start Date End Date Status AeroChamber MDI Spacer - Mouthpiece (Adult) N/A As directed PO Per asthma action plan Active Auvi -Q 0.3 mg as directed intramus cularly once for 30 days Active QVAR 40 mcg 2 puffs inhaled QD f or 30 days 01/16/2022 Active multivitamin Multiple Vitamins 1 tab(s) orally once a day A ctive Jublia 10% 1 jennifer applied topica lly once a day Active Probiotic Formula Ac tive Cetirizine 10 mg 1 tab(s) orally once a day for 30 days Active Nasal Washes N/A as directed intranas ally as needed for 30 Active fluticasone nasal 50 mcg/inh 2 spray(s) in each nostril BID
== END 2023-04-13 19:27 | disposition home or self-care (01) | DRG 807 ==
LOC: ANHLDR 04-11 02:08 → ANHOB2 04-11 05:01
PROVIDERS: Advanced Practice Midwife; Admitting Provider Obstetrics & Gynecology Gynecology; PCP Nurse Practitioner Family; Visit Provider Obstetrics & Gynecology Gynecology
DX: O99.824 Streptococcus B carrier state complicating childbirth (principal); Z37.0 Single live birth; Z3A.39 39 weeks gestation of pregnancy; O70.1 Second degree perineal laceration during delivery; O69.81X0 Labor and delivery complicated by cord around neck, without compression, not applicable or unspecified; O99.52 Diseases of the respiratory system complicating childbirth; J45.909 Unspecified asthma, uncomplicated
CPT/HCPCS: 36415; 85014; 85018; 85025; 86592; 86703; 86850; 86900; 86901; 88307; A9270; G0432; J0290; J0690; J1756; J1885; J2405; J2590; J2795; J3010; J7030; J7120

== ENCOUNTER 2023-06-26 11:00 | Outpatient (RCR) | payer OTHER, SELFPAY ==
--- NOTE | 2023-06-19 13:09 | PC.NURSE ---
In- 1130 Out- 1245 Reason for visit: low supply History: IOL with Cervidil, AROM and Pitocin. Delivered vaginally on 04/11 at 39 wk EGA with no complications other than GBS positive that was treated X6 before delivery. LC worked with mother while inpatient status and was able to assist mother with latching to the breast without the nipple shield. Mother was encouraged to practice with and without the nipple shield working her way to not using the nipple shield, pumping to protect her milk supply with supplementation until full milk supply. Infant History: First after delivery (@0146) charted is at 0515 and a nipple shield is being used as a tool offered by the Primary RN. 04/12 1025 infant was fed a bottle related to mother being nauseated and having not fed since 0300. Mother had 11 stimulations with a nipple shield, pumping occasionally and supplementing after some feedings. was circumcised on 04/13 @1022. went home with a feeding plan. Observations: Mother places the nipple shield on her breast without a good suction and it is easily able to be taken off. Reviewed suctioning nipple shield onto the breast and mother voiced seeing the difference with the nipple brought up into the nipple shield. was latched a bit shallow and mother was encouraged to bring the charlene Sunny to the ruffin mother instead of mother leaning over to place the nipple into [place] mouth. By adjusting mothers position, adjusting infant body by bringing his buttocks up closer to mothers body, then bringing infant to the breast asymmetrically with chin leading. After maintained suction on the nipple shield we took the N.S. off, mother used the sandwich U-hold and infant latched optimally to the right breast using the cross cradle position. Reviewed how to support the optimal latch so as doesn't lose the deep latch. effectively breastfed for 10 min, then effectively latched without the nipple shield to the left breast, was giving feeding cues so both breast were offered again to top off the feeding. By Pre and Post weight infant ingested 115mls. We discussed infant needs and requirements for growth with feeding on demand. weight: 3585g (7-14.5) Lowest weight: 3279g (7-3.9) Last weight: Follow up appt 2180g (7-3.7) Mother states 's weight last Sunday was 11.0lbs even. Pre-feed weight: 5368g (11-13.2) Post-feed weight: 5483g (12-1.4) total 115grams (1 gram =1 milliliter) Approximately 115mls transferred by . After was content, awake, without grimace, hands and arms relaxed with color appropriate for age and race. Plan of Care: Mother is going to practice without the nipple shield feeding infant on demand using the U-hold to latch infant deeply, then supporting that position. We reviewed signs of being content and output showing adequate intake, if signs of contentment are not present mother will supplement with formula as needed. Mother was encouraged to offer the breast more often or consider pumping if infant receives a bottle to protect her milk supply. Mother was given id
== END 2023-09-17 23:59 | disposition home or self-care (01) ==
LOC: ANHOBOP 11:00
PROVIDERS: PCP Nurse Practitioner Family; Visit Provider Pediatrics
DX: Z39.1 Encounter for care and examination of lactating mother (principal)
CPT/HCPCS: 99212; 99213; G0463